=== PATIENT | female | born 1985 | race American Indian/Alaskan Native ===

== ENCOUNTER 2016-10-14 03:14 | Emergency (ER) | payer SELFPAY ==
[2016-10-14 05:32] VITALS: BP 152/87
--- NOTE | 2016-10-18 17:47 | ED Elopement Review ---
ED Pt Elopement review - Call Back decision Pt Call Back Decision: Call pt to return to ED [facility]
== END 2016-10-14 06:00 | disposition left against medical advice (07) ==
LOC: ED 03:14
DX: R10.2 Pelvic and perineal pain (principal); R11.2 Nausea with vomiting, unspecified; Z53.21 Procedure and treatment not carried out due to patient leaving prior to being seen by health care provider